=== PATIENT | female | born 1940 | race Caucasian/White ===

== ENCOUNTER 2023-12-07 01:50 | Inpatient (IN) | payer OTHER, SELFPAY ==
[2023-12-06 23:29] VITALS: BP 157/97
[2023-12-06 23:33] VITALS: BP 157/97
--- NOTE | 2023-12-06 23:33 | ED.GENMED ---
History of Present Illness
General
Chief Complaint: Fall
Source: patient
Exam Limitations: none
Time Seen by Provider: 12/06/23 23:29
History of Present Illness
History of Present Illness:
See MDM
Past History
Past History
ED Past Medical History: GERD (Hiatal hernia), HTN, Hypercholesterolemia, Hypothyroidism and Psychiatric (Anxiety, depression)
ED Past Surgical History: Orthopedic
Social History
Tobacco: Former smoker
Alcohol: Occasional
Personal:
Living: with family
Employment: Retired
Family History
Family History: Other (Noncontributory)
Phy Exam
Physical Exam
Physical Exam:
See MDM
Course
Orders/Labs/Results
Orders:
Orders
12/06/23 23:32
Oxycodone/Acetaminophen [Percocet 5/325] 1 tablet PO NOW STA
12/07/23 00:00
CR Hip - RT w/wo Pel 2-3 Vw* Urgent
Reason For Exam: fall, R hip pain
Include a pelvis x-ray?: Yes
12/07/23 00:40
Morphine Sulfate 4 mg IV NOW STA
12/07/23 00:41
Electrocardiogram (*1) Urgent
Reason for Study: PreOp
Consult Orthopedic [ORTHOPEDIC CONSULT] Routine
Consulting Provider: Duarte Barnes
Was physician already notified: Yes
EKG- Treatment ONCE
12/07/23 00:49
Complete Blood Count/With Diff Urgent
Comprehensive Metabolic Panel Urgent
PTT Urgent
Prothrombin Time Urgent
Abnormal Lab Results
12/07/23
00:49
RDW 14.6 H %
(11.5-14.5)
Abs Immat Gran (auto) 0.1 H 10^3/uL
(0-0.05)
Absolute Lymphs (auto) 0.6 L 10^3/uL
(1.2-3.4)
Immature Gran % 0.8 H %
(0-0.5)
Neutrophils % 81.6 H %
(42.2-75.2)
Lymphocytes % 7.4 L %
(20.5-51.1)
PT 14.7 H Sec
(11.4-14.6)
BUN 26 H mg/dl
(7-17)
Creatinine 1.5 H mg/dL
(0.6-1.0)
Glucose 105 H mg/dl
(70-99)
Total Protein 5.8 L g/dl
(6.3-8.2)
12/07/23 00:49
12/07/23 00:49
Vital Signs
Initial and Last Documented VS:
Initial Vital Signs
Temp Pulse Resp BP Pulse Ox
97.9 F 62 18 157/97 92
12/06/23 23:29 12/06/23 23:29 12/06/23 23:29 12/06/23 23:29 12/06/23 23:29
Last Documented Vital Signs
Temp Pulse Resp BP Pulse Ox
97.9 F 62 18 157/97 92
12/06/23 23:29 12/06/23 23:29 12/06/23 23:29 12/06/23 23:33 12/06/23 23:29
MDM/Problems Addressed
Differential Diagnosis Includes:
HPI and MDM Narrative:
83-year-old female presenting with a trip and fall. Patient states he tripped on the rug and fell on her right hip. She denies head trauma. She is on Eliquis.
Will obtain hip and pelvic x-ray
Physical exam
General: Well appearing and non-toxic
HEENT: protecting airway
Neck: appears supple
CV: No evidence of cyanosis
Resp: No accessory muscle use
Abd: Non-distended
Extremities: No deformities. Point tenderness to right hip and right pelvis. Pelvis stable to compression. Distal extremity neurovascular intact. Decreased range of motion secondary to pain
Neuro: alert
Psych: Normal affect
Skin: Intact
Problems Addressed including Acute and Chronic Conditions affecting care:
1. Hip injury
Acuity: acute
Prognosis: stable
Details: Given the fall, will obtain x-ray to rule out fracture
Updates
X-ray consistent with femoral neck fracture. Orthopedics made aware. Will admit
Differential Diagnosis (but not limited to): Hip fracture, hip contusion
Testing considered: CT head but she denies head trauma
Drug therapy (if applicable): OTC meds, please see d/c instruction regarding Rx drugs
Amount and/or Complexity of Data Reviewed
Clinical info obtained from: Patient
External data reviewed: N/A
Labs I independently reviewed (but not limited to): Hgb stable
Radiology: X-ray independently reviewed: Right femoral neck fracture
Pulse Ox: not hypoxic
EKG independently reviewed: Sinus rhythm, left axis, no STEMI
Wardrobe Technician: N/A
Critical Care: N/A
Risk of Complication:
Social Determinants of health: Good social support
Discussed with other providers: Orthopedics, hospitalist
Escalation of Care includes Admit/Obs: Given the femoral neck fracture, will admit
Occasional wrong word or 'sound a like' substitutions may have occurred due to the inherent limitations of voice recognition software. Read the chart carefully and recognize, using context, where substitutions have occurred.
*Critical Care Note
Total Time (30-74mins, 75-104mins- exclusive of procedures): Not Applicable
ED Attending Note
-
Portions of this chart may have been created with voice recognition software.� Occasional wrong word or��sound alike� substitutions may have occurred due to the inherent limitations of voice recognition software.
Discharge Plan
Departure
Patient Disposition: Admit
Date of Disposition: 12/07/23
Time of Disposition: 00:42
Admit to: Med/Surg
Presentation/result/management discussed w/ accepting MD/DO: Hospitalist
Discharge Problem:
Closed hip fracture
Prescriptions:
No Action
levothyroxine 125 MCG tablet
125 mcg PO DAILY AT 0700
fluoxetine 60 MG tablet
60 mg PO DAILY
atorvastatin 20 mg Tablet
20 mg PO QPM
pantoprazole 40 mg Tablet,Delayed Release (Dr/Ec)
40 mg PO DAILY
Eliquis 2.5 mg Tablet
2.5 mg PO BID
Trelegy Ellipta 200-62.5-25 mcg blister with device
1 inh INHALATION DAILY
bupropion HCl 100 mg tablet sustained-release 12 hr
100 mg PO DAILY
furosemide 40 mg Tablet
40 mg PO DAILY Qty: 30 0RF
spironolactone 25 mg Tablet
12.5 mg PO DAILY Qty: 30 0RF
potassium chloride [Klor-Con M20] 20 mEq Tablet,Er Particles/Crystals
20 meq PO DAILY Qty: 30 0RF
metoprolol succinate 25 mg Tablet Extended Release 24 Hr
25 mg PO BID Qty: 0 0RF
Referrals:
Holly Mason MD [Family Provider] -
Interventions
Interventions:
*Risk Screen - Suicide Last Done: 12/06/23 23:29
*General Assessment Last Done: 12/06/23 23:29
*Neglect/Abuse Screening Last Done: 12/06/23 23:29
ED- Fall Risk Assessment Last Done: 12/06/23 23:40
ED-Musculoskeletal Assessment Last Done: 12/06/23 23:40
ED- Neurological Assessment Last Done: 12/06/23 23:40
ED-Skin Assessment Last Done: 12/06/23 23:40
Discharge Date and Time
Print Language: ESTONIAN
[2023-12-06] MEDS: PERCOCET 5/325 1 TABLET PO (23:37)
[2023-12-07] VITALS (7 sets, daily range): BP systolic 137–165; BP diastolic 70–99; BMI 22.0
[2023-12-07] MEDS: MORPHINE SULFATE 4 MG IV (00:49)
[2023-12-07 00:58] LABS: % Basophils 0.7 % (0-2); % Eosinophils 2.1 % (0-6); % Immature Granulocytes 0.8 % (0-0.5); % Lymphocytes 7.4 % (20.5-51.1); % Monocytes 7.4 % (1.7-9.3); % Neutrophils 81.6 % (42.2-75.2); Absolute Basophils 0.1 10^3/uL (0-0.2); Absolute Eosinophils 0.2 10^3/uL (0-0.7); Absolute Immature Granulocytes 0.1 10^3/uL (0-0.05); Absolute Lymphocytes 0.6 10^3/uL (1.2-3.4); Absolute Monocytes 0.6 10^3/uL (0.1-0.6); Absolute Neutrophils 6.1 10^3/uL (1.4-6.5); Hematocrit 37.2 % (37.0-47.0); Hemoglobin 12.7 g/dL (12.0-16.0); Mean Corp Hgb Conc. 34.1 g/dL (33.0-37.0); Mean Corpuscular Volume 87.9 fL (81.0-99.0); Mean Platelet Volume 9.9 fL (7.4-10.4); Nucleated Red Blood Cells % 0 %; Platelet Count 315 10^3/uL (130-400); Red Blood Cell Count 4.23 10^6/uL (4.20-5.40); Red Cell Dist. Width 14.6 % (11.5-14.5); White Blood Cell Count 7.5 10^3/uL (4.8-10.8)
[2023-12-07 01:09] LABS: INR 1.17; PT 14.7 Sec (11.4-14.6)
[2023-12-07 01:11] LABS: ALT (SGPT) 29 U/L (0-35); AST (SGOT) 32 U/L (14-36); Albumin 3.5 g/dl (3.5-5.0); Alkaline Phosphatase 105 U/L (38-126); Blood Urea Nitrogen 26 mg/dl (7-17); Calcium 9.4 mg/dl (8.4-10.2); Carbon Dioxide 28 mmol/L (22-30); Chloride 107 mmol/L (98-107); Estimated Creatinine Clearance 27 ml/min; Glucose 105 mg/dl (70-99); Potassium 4.3 mmol/L (3.5-5.1); Sodium 143 mmol/L (135-145); Total Bilirubin 0.8 mg/dl (0.2-1.3); Total Protein 5.8 g/dl (6.3-8.2); eGFR 34.58
--- NOTE | 2023-12-07 01:25 | HPS.HSE ---
Family Physician
-
Family Physician: Holly Mason
Chief Complaint
-
fall and Rt Hip pain
History of Present Illness
82F from home [facility] PMH significant for hypertension, hypothyroidism and prior PE, HX Lt ANDREAS seen at ER for evaluation of s/p mechanical fall and Rt hip pain.
Medical History
Past Medical History
Past Medical History: Reports Other
Additional Past Medical History:
Hypertension
Hypothyroidism
Chronic HFpEF
Anxiety / Depression
COPD
Pulmonary Hypertension
History of PE
Hiatal Hernia / GERD
Past Surgical History: Reports Other
Additional Past Surgical History:
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
Left Hip ORIF
Lipoma Excision - Back
Left Thumb Surgery
Social History
Tobacco: Former Smoker (Quit in the past year or two.)
Alcohol: None
Drug: None
Living: Assisted Living (Usually at assisted living. Currently staying with family.)
Family History
Family History: Unable to Obtain
Allergies / Home Medications
Allergies reflects when Allergies were last updated in [employer].
Home Medications with original date entered in [employer]
Allergy/Medication List:
Allergies
Allergy/AdvReac Type Severity Reaction Status Date / Time
lisinopril Allergy Tongue Verified 10/03/22 18:34
Swelling
seasonal Allergy itchy Uncoded 10/03/22 18:34
eyes,
sneezing,
sinus
congestion
Home Medications
levothyroxine 125 mcg tablet 125 mcg PO DAILY AT 0700 Thyroid 06/19/19
fluoxetine 60 mg tablet 60 mg PO DAILY Depression 03/29/20
cefdinir 300 mg capsule 300 mg PO BID #13 caps 10/03/22
apixaban 2.5 mg tablet (Eliquis) 2.5 mg PO BID 10/05/22
atorvastatin 20 mg tablet 20 mg PO QPM 10/05/22
bupropion HCl 100 mg tablet 100 mg PO DAILY 10/05/22
furosemide 40 mg tablet 40 mg PO QMWF 10/05/22
metoprolol succinate 25 mg tablet,extended release 24 hr 25 mg PO DAILY 10/05/22
pantoprazole 40 mg tablet,delayed release 40 mg PO DAILY 10/05/22
Review of Systems
-
History Source: Patient
A 12 point ROS was completed and negative except as noted: Yes
Constitutional: Denies Fever or Chills
Respiratory: Denies Trouble Breathing
Cardiac: Denies Chest Pain
Abdomen/GI: Denies Abdominal Pain
Musculoskeletal: Reports See HPI
Neurological: Denies Headache
Physical Exam
Vital Signs
Vital Signs
Temp Pulse Resp BP Pulse Ox
97.9 F 62 18 157/97 92
12/06/23 23:29 12/06/23 23:29 12/06/23 23:29 12/06/23 23:33 12/06/23 23:29
Physical Exam
General: Other (82y F appears confused and somewhat restless.)
HEENT: Moist mucous membranes, PERRLA and Other (JVD to the angle of the mandible.)
Respiratory: Other (Diffuse rales bilaterally - all the way up.)
Cardiac: S1/S2, Regular Rhythm (with ectopy.) and Murmur (II/ LEAH)
GI: Soft, Non Tender, Non Distended and Normal Bowel Sounds
Musculoskeletal: No Clubbing, No Cyanosis and Other (Point tenderness to right hip and right pelvis. Pelvis stable to compression. Distal extremity )
Neuro: Other (Sleeping / confused.)
Laboratory Results
-
12/07/23 00:49
12/07/23 00:49
Laboratory Results
PT 14.7 Sec (11.4-14.6) H 12/07/23 00:49
INR 1.17 12/07/23 00:49
APTT 28.0 Sec (23.4-35.0) 12/07/23 00:49
Total Bilirubin 0.8 mg/dl (0.2-1.3) 12/07/23 00:49
AST 32 U/L (14-36) 12/07/23 00:49
ALT 29 U/L (0-35) 12/07/23 00:49
Alkaline Phosphatase 105 U/L (38-126) 12/07/23 00:49
Data Reviewed
-
Lab Data: Labs Reviewed by me
Old Records: Reviewed
Impression/Plan
-
Vital Signs
Temp Pulse Resp BP Pulse Ox
97.9 F 62 18 157/97 92
12/06/23 23:29 12/06/23 23:29 12/06/23 23:29 12/06/23 23:33 12/06/23 23:29
Labs
12/07/23
00:49
WBC 7.5
Hgb 12.7
INR 1.17
BUN 26 H
Creatinine 1.5 H
eGFR 34.58
EKG:
NORMAL SINUS RHYTHM
POSSIBLE LEFT ATRIAL ENLARGEMENT
LEFT AXIS DEVIATION
LEFT BUNDLE BRANCH BLOCK
ABNORMAL ECG
WHEN COMPARED WITH ECG OF 06-OCT-2022 12:02,
PREMATURE ATRIAL COMPLEXES ARE NO LONGER PRESENT
TTE 06/27
preserved EF, moderate MR / TR and pulmonary hypertension.
ASSESSMENT & PLAN
Acute Rt hip NoF Fx
s/p mechanical fall
RCRI class III risks
- Last dose of Eliquis : 12/06/23 evening
- Held further Eliquis
- Fx set protocol
- Ortho consulted
Chronic HFpEF HX
- cont OPTICAL INSTRUMENT INSPECTOR PO Lasix, Spironolactone and KCL supplement
- Follow I/Os, daily weights, etc.
- Supportive care with supplemental O2
Dementia
- fall precaution
Benign Hypertension
- Stable.
- continue metoprolol.
CKD3
- Stable. Renal function is at / near known baseline.
- daily BMP
Hypothyroidism
- Continue current T4 dose.
HX PE
- Held Eliquis
DVT Px: SCD
Code: Full
IP TLM
[2023-12-07] MEDS: TYLENOL 650 MG PO ×4 (03:56→20:01)
[2023-12-07] MEDS: DILAUDID 0.5 MG IV ×4 (05:36→22:33)
--- NOTE | 2023-12-07 07:19 | W.PN.UPDATE ---
Update Note
Progress Note Update
Patient seen and examined, agree with admitting hospitalist H&P.
83-year-old female with a past medical history of dementia, pulmonary embolism on Eliquis, hypertension, and stage III chronic kidney disease was admitted for acute right hip fracture due to mechanical fall.
Appreciate orthopedic surgery input, plan for ORIF tomorrow, continue holding Eliquis.
Patient has prolonged QTc of 522 ms. She is having nausea and vomiting. Will order promethazine rectal as needed.
Repeat EKG today and tomorrow, avoid Zofran and all QTc prolonging agents.
[2023-12-07] MEDS: TYLENOL PO (08:15)
--- NOTE | 2023-12-07 08:16 | W.PN.UPDATE ---
Update Note
Progress Note Update
Full consult dictated. 83 yo female living independently with family in the area. Fell yesterday and could not ambulate. Xrays reveal right femoral neck fracture. Patient with memory issues and was not a good historian. Spoke with her daughter
who states memory is worse when anxious. Explained treatment options. Have recommended right hip hemiarthroplasty. Risks, complications, benefits, and postop expectations discussed. The procedure itself was discussed. All questions were
answered. Informed consent obtained by telephone from her daughter. Evaluation of the patient reveals that she is not a good historian. AVSS. Right LE shortened and externally rotated. NVI distally. Calf soft. Healed incision about the
anterior aspect of her right thigh from benign mass excision more than 20 years ago according to daughter. Ramiro Scott. Plan for surgery tomorrow for right hip hemiarthroplasty
[2023-12-07] MEDS: PHENERGAN 25 MG RECTAL (08:19)
--- NOTE | 2023-12-07 11:35 | CM ---
Reviewed the chart notes and spoke with the patient and her daughter at the bedside. The patient resides alone in an independent apartment at [facility]. The patient has a rolling walker and shower chair. The patient has been to [facility]
[place] and [facility] in the past. The patient has had [facility] in the past. The patient's pharmacy of choice is [facility]. CM continues to be available to patient/family and is monitoring medical plan for needs at discharge.
Plan: Discharge plan will most likely be SNF/rehab prior to transitioning back to home.
[2023-12-07] MEDS: WELLBUTRIN SR (12 hour sustained release) 100 MG PO (16:41)
[2023-12-07] MEDS: PROTONIX 40 MG PO (16:41)
[2023-12-07] MEDS: TOPROL XL 25 MG PO (16:42)
[2023-12-07] MEDS: LIPITOR 20 MG PO (16:58)
--- NOTE | 2023-12-07 17:31 | PTCARENOTE ---
1700 pt not voiding although purewick in place. BS for 372mls. she then urinated into purewick, not a full empty but will continue to monitor
[2023-12-07] MEDS: COLACE 100 MG PO (20:01)
[2023-12-07] MEDS: SENOKOT 17.2 MG PO (20:01)
[2023-12-07] MEDS: SYMBICORT 160/4.5 MCG INHALER 2 PUFF INH (20:05)
[2023-12-08] VITALS (57 sets, daily range): BP systolic 35–153; BP diastolic 32–96; BMI 22.0
[2023-12-08] MEDS: TYLENOL PO ×6 (00:55→23:56)
[2023-12-08] MEDS: DILAUDID 0.5 MG IV ×2 (04:41→23:50)
[2023-12-08] MEDS: TYLENOL 650 MG PO (04:42)
[2023-12-08] MEDS: SYNTHROID 112 MCG PO (05:20)
[2023-12-08 06:33] LABS: Hematocrit 37.8 % (37.0-47.0); Hemoglobin 13.1 g/dL (12.0-16.0); Mean Corp Hgb Conc. 34.7 g/dL (33.0-37.0); Mean Corpuscular Volume 89.4 fL (81.0-99.0); Mean Platelet Volume 10.4 fL (7.4-10.4); Platelet Count 278 10^3/uL (130-400); Red Blood Cell Count 4.23 10^6/uL (4.20-5.40); Red Cell Dist. Width 14.4 % (11.5-14.5); White Blood Cell Count 11.4 10^3/uL (4.8-10.8)
[2023-12-08 07:04] LABS: ALT (SGPT) 24 U/L (0-35); AST (SGOT) 33 U/L (14-36); Albumin 3.3 g/dl (3.5-5.0); Alkaline Phosphatase 94 U/L (38-126); Blood Urea Nitrogen 22 mg/dl (7-17); Calcium 9.5 mg/dl (8.4-10.2); Carbon Dioxide 25 mmol/L (22-30); Chloride 108 mmol/L (98-107); Direct Bilirubin 0.2 mg/dl (0.0-0.4); Estimated Creatinine Clearance 31 ml/min; Glucose 113 mg/dl (70-99); Magnesium 1.8 mg/dl (1.6-2.3); Sodium 142 mmol/L (135-145); Total Bilirubin 1.2 mg/dl (0.2-1.3); Total Protein 5.6 g/dl (6.3-8.2); eGFR 45.19
[2023-12-08] MEDS: COLACE PO ×2 (08:00→20:42)
[2023-12-08] MEDS: SENOKOT PO ×2 (08:00→20:42)
[2023-12-08] MEDS: WELLBUTRIN SR (12 hour sustained release) PO (08:00)
[2023-12-08] MEDS: PROTONIX PO (08:00)
[2023-12-08] MEDS: TOPROL XL PO (08:00)
--- NOTE | 2023-12-08 08:04 | PTCARENOTE ---
pt transferred to OR via bed by EMS EDUCATOR and Dr Barnes at 0800. Ancef sent to OR.
[2023-12-08] MEDS: SYMBICORT 160/4.5 MCG INHALER INH (08:08)
[2023-12-08] MEDS: SPIRIVA RESPIMAT 2.5 MCG INH (08:08)
--- NOTE | 2023-12-08 08:24 | W.PN.HOSP.TC ---
Addendum entered and electronically signed by Cait Matamoros MD 12/08/23 15:26:
patient had large mass, likely large lipoma in thigh that was removed - 6' x 8'
drain in place with some bleeding - 85cc since PACU
will continue to trend Hg overnight, blood consent was signed for PACU
*Eliquis to start tomorrow evening, ordered by ortho
Original Note:
Today's Communication/Plan
-
see plan
Assessment / Plan
Assessment / Plan
Ms. Anahy Montalvo is a 83 yo woman with hx HTN, Hypothyroidism, prior PE on Eliquis, left ANDREAS presents to the ER s/p fall and right hip pain found to have right hip fracture.
Right Hip Fracture
-admitted to medicine
-s/p OR earlier today (12/07)
-appreciate ortho
-Eliquis resumed this evening per ortho
-PT/OT
Chronic HFpEF HX
-TURN DOWN WORKER lasix, potassium and spironolactone held
-receiving IVF post OR - monitor volume status
- Follow I/Os, daily weights, etc.
- Supportive care with supplemental O2
Dementia
- fall precaution
Benign Hypertension
- Stable.
- continue metoprolol.
CKD3
- Stable. Renal function is at / near known baseline.
- daily BMP
Hypothyroidism
- Continue current T4 dose.
HX PE
-resume Eliquis this evening
Depression
-TURN DOWN WORKER Wellbutrin
-TURN DOWN WORKER Fluoxetine held for prolonged Qtc - will discuss with psychiatry
DVT Px: SCD
Code: Full
IP TLM
Anticipated Discharge: 24 - 48 hours
Subjective/Interval History
-
Date of Service: December 08, 2023
seen post-op
sedated but nods to voice
Objective Data
-
Labs:
Laboratory Results
12/08/23
05:58
WBC 11.4 H
Hgb 13.1
Hct 37.8
Plt Count 278
Sodium 142
Potassium 4.0
Chloride 108 H
Carbon Dioxide 25
BUN 22 H
Creatinine 1.2 H
Glucose 113 H
Calcium 9.5
Total Bilirubin 1.2
AST 33
ALT 24
Alkaline Phosphatase 94
Vital Signs:
Vital Signs
Temp Pulse Resp BP Pulse Ox
98.4 F 68 16 135/89 94
12/08/23 07:20 12/08/23 07:20 12/08/23 07:20 12/08/23 07:20 12/08/23 07:20
I&O
12/07/23 12/08/23 12/09/23
06:59 06:59 06:59
Intake Total 480 / 480
Output Total 200 / 200
Balance 280 / 280
Review of Systems
-
History Source: Patient
All other systems: Reviewed and negative
Physical Exam
-
General: Other (sedated, in no distress )
HEENT: PERRLA
Respiratory: Clear to Auscultation
Cardiac: Regular Rhythm and S1/S2
Musculoskeletal: No Edema and Other (right hip with draining and GARDENIA drain in place )
Skin: Warm and Dry; Negative Rash
Neuro: AO x 3
Psych: Calm
Data Reviewed
-
Diagnostic Radiology: Report Reviewed by me
Labs: Labs Reviewed by me
[2023-12-08] MEDS: NSS 1000 IV (12:17)
--- NOTE | 2023-12-08 12:38 | PTCARENOTE ---
pt received from PACU to room 2108. pt sleeping unless disturbed and returns back to sleep. VS: 97.5-81-16-86/56, pox 97% on 3L NC. assessment as documented. call ndiaye in reach. bed in lowest postition. safe environment maintained. will
observe.
[2023-12-08] MEDS: NSS 500 IV ×3 (13:00→15:07)
--- NOTE | 2023-12-08 13:08 | PTCARENOTE ---
NS 500 ml BOLUS IV started at this time per Dr Matamoros. will observe.
--- NOTE | 2023-12-08 13:56 | PTCARENOTE ---
bolus complete. BP 73/56, HR 74, manual BP 74/48-HR 75. dr Matamoros made aware.
2nd Bolus 500ml NS started at 1345. EKG completed and phlebotomy ag labs. pt alert and talking during EKG, but returns to sleep.
remains NSR w/BBC in 70's on telemetry.
[2023-12-08 14:03] LABS: Hemoglobin 10.7 g/dL (12.0-16.0)
--- NOTE | 2023-12-08 14:35 | W.PN.UPDATE ---
Update Note
Progress Note Update
patient hypotensive post-op
she is confused, awake and alert. + lower back pain. no chest pain
SBP 70's despite 1L IVF
drop in Hg from 13.1 to 10.7, expected post-op
Given patient has a history of heart failure (EF 30% 10/27); caution with fluid administration
-will give additional 500cc now
-transfer to ICU for initiation of Levophed
-hold SURGICAL ONCOLOGIST Metoprolol
-trend Hg
-TTE tomorrow
-Drawer Fitter consulted
-family updated
-Orthopedist updated
Non-MN Troponin Elevation
-no chest pain
-EKG with chronic LBBB, compared to prior no longer has TWI lateral leads
-will trend and obtain TTE tomorrow
Nausea
-given Qtc prolonged will trial IM Tigan. If ineffective will give rectal phenergan - discussed plan with pharmacy
Total Critical Care Time 45 minutes. I was immediately available to the patient and staff. I personally examined, reviewed labs, diagnostic images/reports, interpretations, treatment plans, discussed patient care with other providers and family
or caregivers (if patient is unable to make decisions), entered orders as appropriate and documented the medical record.
[2023-12-08 14:36] LABS: Troponin I 0.712 ng/ml
--- NOTE | 2023-12-08 14:55 | PTCARENOTE ---
2nd Bolus 500 ml NS complete-BP 71/49, HR 77, manual BP 70/40. Dr Matamoros made aware and to see pt.
All personal belongings packed and BUILDING SERVICES COORDINATOR came to room to transport pt to ICU room 4619. verbal report given.
[2023-12-08] MEDS: PROZAC PO (15:03)
[2023-12-08] MEDS: LEVOPHED 250 IV ×3 (15:15→22:22)
--- NOTE | 2023-12-08 15:50 | CON.INTV ---
Consultation
Consultation Request
Date/Time Consultation Requested: 12/08/2023
Date/Time Consultation Performed: 12/08/2023
Requesting Provider: Dr. Matamoros
Performing Provider: Dr. Nico Crews
Reason for Consultation: Postoperative hypotension
Medical History
-
History of Present Illness:
84-year-old woman with past medical history significant for hypertension, hypothyroidism, prior pulmonary embolism, history of left total hip arthroplasty evaluated in the emergency room due to mechanical fall and right hip pain.
Past Medical History
Past Medical History: Other ( See assessment and plan)
Family History
Family History: Reviewed & Not Pertinent
Allergies / Home Medications
Allergies
Allergy/AdvReac Type Severity Reaction Status Date / Time
lisinopril Allergy Tongue Verified 12/06/23 23:36
Swelling
seasonal Allergy itchy Uncoded 12/06/23 23:36
eyes,
sneezing,
sinus
congestion
Home Medications
�Medication �Instructions �Recorded �Confirmed �Last Taken �Type
fluoxetine 60 mg tablet 60 mg PO DAILY Depression 03/29/20 12/07/23 03/28/20 History
apixaban 2.5 mg tablet (Eliquis) 2.5 mg PO BID Blood Clot 10/05/22 12/07/23 Unknown History
Prevention/Tx
atorvastatin 20 mg tablet 20 mg PO QPM High Cholesterol 10/05/22 12/07/23 Unknown History
bupropion HCl 100 mg tablet,12 hr 100 mg PO DAILY Depression 10/05/22 12/07/23 Unknown History
sustained-release
fluticasone fur. 200 mcg-umeclid 1 inh inhalation R DAILY 10/05/22 12/07/23 10/04/22 10:00 History
62.5 mcg-vilant 25 mcg Lung/Breathing Issues
inhalat.powder (Trelegy Ellipta)
pantoprazole 40 mg tablet,delayed 40 mg PO DAILY Gastrointestinal 10/05/22 12/07/23 Unknown History
release Issue
furosemide 20 mg tablet 20 mg PO DAILY Fluid 12/07/23 12/07/23 Unknown History
Retention/Swelling
levothyroxine 112 mcg tablet 112 mcg PO DAILY Thyroid 12/07/23 12/07/23 Unknown History
metoprolol succinate 25 mg 25 mg PO DAILY Blood Pressure 12/07/23 12/07/23 Unknown History
tablet,extended release 24 hr
potassium chloride 20 mEq 20 meq PO DAILY Electrolyte 12/07/23 12/07/23 Unknown History
tablet,extended release Repletion
Review of Systems
-
History Source: Patient
All other systems: Negative unless noted
Vitals / Labs / Diagnostic Testing
Vital Signs
Temp Pulse Resp BP Pulse Ox
97.5 F 77 14 70/40 97
12/08/23 12:29 12/08/23 14:20 12/08/23 14:20 12/08/23 14:20 12/08/23 12:30
Lab Data
12/08/23 05:58
Diagnostic Testing:
Physical Exam
-
HEENT: Normocephalic
Cardiovascular: S1/S2
Respiratory: Clear and Non-Labored Respirations
GI: Soft and Non Distended
Neurology: Awake, Oriented and No Motor Deficits
Skin: Warm
General: Comfortable
Assessment
-
83-year-old woman with multiple comorbidities, mild COPD, prior pulmonary embolism to sedentary lifestyle on low-dose Eliquis, cognitive decline, weight loss, poor mobility, admitted after developing a fall. Subsequently right hemiarthroplasty.
Then sent to the floors. Developed hypotension. Remain lethargic postanesthesia transferred to the critical care unit 12/08/2023 for evaluation and further management
Status post fall right femoral neck fracture: Status post right hip hemiarthroplasty 12/08/2023.
Postoperative hypotension-not responsive to IV fluid
Lethargy-likely postanesthesia effect
Postoperative anemia hemoglobin dropped from 13 to 10.7
Mild troponin leak-0.7-cannot rule out acute coronary syndrome as the patient has new global hypokinesis with low LVEF. Decline cardiac catheterization per cardiology.
EKG: Normal sinus rhythm. Left axis deviation. Chronic left bundle branch block.
Conditions present on :
History of hypertension
Hypothyroidism
Chronic heart failure with reduced ejection fraction based on echocardiogram 10/2022
Declined cardiac catheterization based on note from Dr. Ceja 10/23/2023
Anxiety/depression
YASE-booz-[id number] by Dr. Crews once to establish care 11/21/2023.
Pulmonary hypertension
Prior history of pulmonary embolism: Probably provoked by sedentary lifestyle. She was seen by hematology at her [facility]. She was recommended to continue secondary prophylaxis Eliquis indefinitely.
History of pulmonary embolism
Hiatal hernia/GERD
History of excision of soft tissue tumor of the right thigh
Left hip arthroplasty
Former smoker quit in January 2022
Cognitive decline
-
Echocardiogram 10/07/2022:
Showed normal left ventricular chamber size. Mild concentric left ventricular hypertrophy. Moderately reduced left ventricular systolic function. Ejection fraction 30%. Global hypokinesis. Bilateral atrial enlargement. Mild to moderate MR.
Mild to moderate TR.
Assessment and plan:
Postoperative hypotension. Possibly multifactorial.
Anesthesia effect
Anemia postoperatively. So far no evidence for bleeding.
-
Status post IV fluid resuscitation.
Hold on further aggressive IV fluids given ejection fraction of 30%.
Okay to start low-dose Levophed.
Hopefully as anesthesia wears off we will be able to wean it off.
-
With recently diagnosed systolic heart failure in October 2023-declined cardiac catheterization per [facility] note cannot rule out coronary artery disease as a component as well as heart failure.
Troponin has increased. She denies any chest discomfort.
EKG appears relatively stable compared to prior. Old LBBB.
Trend troponins, if continues to rise may need cardiology evaluation per
Currently chest pain-free
Agree with echocardiogram
May need cardiology evaluate
Medical management recommended
-
She also has history of pulmonary embolism in the past related to her sedentary lifestyle. She has been on secondary prophylaxis Eliquis.
Acute pulmonary embolism also with possibility. She reports compliance with anticoagulation until this admission.
Currently not hypoxemic
Not tachycardic
Minimal oxygen requirements.
If there is no improvement on hemodynamics, may need to consider CT angiogram. Patient is at high risk for contrast-induced nephropathy given chronic kidney disease.
Will start with lower extremity Dopplers first, difficult situation as the patient just underwent hip surgery.
Temporary IVC filter will be recommended if there is DVT.
-
She is lethargic: Arousable. Following commands.
Followed back to sleep quickly
Likely postanesthesia effect head of the bed elevation
N.p.o. for now.
Obtain ABG rule out
-
COPD: Mild. Not bronchospastic.
No indication for corticosteroids.
-
Dr. Crews updated daughter at the bedside 12/08/2023. Daughter state the patient has been declining, poor p.o. intake, mostly sedentary, cognitive decline over the last several months. I have asked her to discuss with the rest of the family to at
least establish a DNR order.
This is a high risk situation.
-
Critical care statement: A total of 38 minutes of critical care time was provided for this patient today. This includes management of unstable vital signs, evaluation of the patient at bedside, reviewing the patient's pertinent medical records
including, radiographs, microbiology, laboratory evaluations and discussion with primary team, critical care nursing, and respiratory therapy.
[2023-12-08] MEDS: LIDOCAINE 4% PATCH 1 PATCH TOPICAL (16:45)
[2023-12-08 17:02] LABS: HCO3 17.7 mmol/L (21-28); O2 Saturation % 98.7 % (94-98); PCO2 32 mmHg (32-35); PO2 84 mmHg (83-108); pH 7.35 (7.35-7.45)
[2023-12-08] MEDS: ANCEF 5 IV (17:03)
[2023-12-08] MEDS: LIPITOR PO (17:05)
--- NOTE | 2023-12-08 18:26 | PTCARENOTE ---
Pt upgraded to ICU level of care for hypotension. Drowsy and lethargic. Does awake to verbal stimuli and able to follow commands but quickly returns to sleep. Oriented to self and time. Sometimes oriented to 'the hospital,' but not able to guess
which it might be. SaO2 96% on 2L. Lungs clear to auscultation. CXR obtained. EKG obtained upon arrival to ICU. Sinuis rhythm/Sinus tach with BBBC. +1 edema at (R) hip. LE doppler study completed at bedside. Levophed gtt initiated with goal of SBP >
90. Levophed gtt titrated to 20 mcg/min to maintain goal. GARDENIA drain with sanguinous drainage. (R) hip Aquacel dressing C/D/I. Pt without void. Beginning to complain of discomfort and need to void, but unable to do so. Bladder scanned for 432ml and
straight cath'd for 500ml. Family discussing code status with ALISSON Barnard.
--- NOTE | 2023-12-08 19:03 | W.PN.UPDATE ---
Addendum entered and electronically signed by ALISSON Esteves 12/08/23 19:10:
no intubation, DNR status updated in orders
Original Note:
Update Note
Progress Note Update
Family requested to update patient's code status to DNR. Reviewed plan of care and answered all questions. Patient's daughter Sixto at bedside with multiple family members all in agreement to change code status to DNR, no CPR, no defibrillation, no
ACLS medications. Will continue current treatment plan and continue vasopressor.
[2023-12-08] MEDS: SYMBICORT 160/4.5 MCG INHALER 2 PUFF INH (19:56)
--- NOTE | 2023-12-08 20:00 | PTCARENOTE ---
agent based modeler, pt oriented to self, confused conversation, able to make needs known although often repetitive in requests/forgetful. ST HR 100s-1teens. IV x 3 WNL- Levo infusing per work list. R hip NV check WNL- GARDENIA drain with mod amt bloody
drainage. bed alarm on, call ndiaye with pt.
[2023-12-08 20:42] LABS: Hemoglobin 10.2 g/dL (12.0-16.0)
[2023-12-08] MEDS: ZOFRAN 4 MG IV (21:42)
[2023-12-09] VITALS (84 sets, daily range): BP systolic 71–154; BP diastolic 48–119; BMI 21.9
[2023-12-09] MEDS: ANCEF 5 IV (00:20)
[2023-12-09] MEDS: NSS IV (00:42)
[2023-12-09] MEDS: LEVOPHED 250 IV ×5 (01:25→19:11)
--- NOTE | 2023-12-09 04:00 | PTCARENOTE ---
pt confused and uncooperative at times t/o night. no UO- bladder scan for 38cc, KFlahertyNP aware. no further changes in assessment. bed alarm on.
[2023-12-09] MEDS: ZOFRAN 4 MG IV ×2 (04:02→11:16)
[2023-12-09] MEDS: DILAUDID 0.5 MG IV ×4 (04:02→23:17)
[2023-12-09 04:18] LABS: Hematocrit 28.9 % (37.0-47.0); Hemoglobin 9.9 g/dL (12.0-16.0); Mean Corp Hgb Conc. 34.3 g/dL (33.0-37.0); Mean Corpuscular Hgb 30.6 pg (27.0-31.0); Mean Corpuscular Volume 89.2 fL (81.0-99.0); Mean Platelet Volume 10.7 fL (7.4-10.4); Platelet Count 307 10^3/uL (130-400); Red Blood Cell Count 3.24 10^6/uL (4.20-5.40); Red Cell Dist. Width 14.9 % (11.5-14.5); White Blood Cell Count 18.5 10^3/uL (4.8-10.8)
[2023-12-09] MEDS: TYLENOL PO ×5 (04:21→23:07)
[2023-12-09 04:44] LABS: Blood Urea Nitrogen 33 mg/dl (7-17); Calcium 8.3 mg/dl (8.4-10.2); Carbon Dioxide 19 mmol/L (22-30); Chloride 105 mmol/L (98-107); Estimated Creatinine Clearance 16 ml/min; Glucose 142 mg/dl (70-99); Potassium 4.4 mmol/L (3.5-5.1); Sodium 139 mmol/L (135-145)
[2023-12-09 04:56] LABS: Troponin I 0.999 ng/ml
[2023-12-09] MEDS: SYNTHROID PO (05:25)
--- NOTE | 2023-12-09 06:48 | W.PN.ORTHO ---
Addendum entered and electronically signed by Duarte Barnes MD 12/09/23 07:29:
Patient seen and examined. Confused. Afebrile. On pressors for BP. Pulm: nonlabored. RLE: thigh soft. NVI distally. Calf soft. Dressing CDI. Drain intact. Hgb stable 9.7. WBC 18.5. Will follow. Mobilize as able.
Original Note:
Today's Communication / Plan
-
POD1 right hip hemiarthroplasty under the direction of Dr. Barnes
--WBAT RLE. Maintain hip precautions. PT/OT when able
--Maintain surgical dressing
--GARDENIA drain with total output of 75cc over 12 hours. Continue to monitor. Will likely leave in place until Friday
--Continue with pain medications as needed. Apply ice to right hip as needed
--Ok to resume Eliquis this evening
--Appreciate care of medical teams
--Will continue to follow
Assessment
.
Distal Motor Intact: Yes
Dressing:
Clean, dry and intact.
Plan
.
Surgery / Date: Right hip mehul 12/08/23 ([facility])
DVT Prophylaxis: Other (Eliquis)
Activity:
Out of bed.
PT/OT
Subjective
.
.:
Patient resting in bed this morning. She is sleeping. She is arousable, but falls back to sleep. Patient was transferred to ICU yesterday for hypotension. She was started on levophed.
Vital Signs and Labs
.
Vital Signs and Labs:
Lab Results
12/09/23 04:03
12/09/23 04:03
Temp Pulse Resp BP Pulse Ox
97.8 F 118 18 106/65 95
12/08/23 20:12 12/09/23 05:15 12/09/23 05:15 12/09/23 05:15 12/09/23 04:45
PT 14.7 Sec (11.4-14.6) H 12/07/23 00:49
INR 1.17 12/07/23 00:49
Physical Exam
-
RLE:
Surgical dressing to right hip. Clean, dry, and intact. There is GARDENIA drain to right thigh to suction with minimal output. General tenderness to palpation of the right hip. Thigh is soft and compressible. Calf soft and nontender. NVI distally
[2023-12-09] MEDS: SPIRIVA RESPIMAT 2.5 MCG 2 PUFF INH (07:41)
[2023-12-09] MEDS: SYMBICORT 160/4.5 MCG INHALER 2 PUFF INH (07:41)
--- NOTE | 2023-12-09 07:45 | W.PN.INTV ---
Today's Communication / Plan
Recommendations
Wean norepinephrine as able
Echocardiogram, renal ultrasound pending
Check hemoglobin in p.m.
Active type and screen if agreeable
Plan to resume Eliquis in the p.m.
Consider cardiology evaluation depending on clinical course. However family and patient requesting nonaggressive management
Family apparently considering transition to focus on comfort, palliative care
Assessment
-
83-year-old woman with multiple comorbidities, mild COPD, prior pulmonary embolism to sedentary lifestyle on low-dose Eliquis, cognitive decline, weight loss, poor mobility, admitted after developing a fall. Subsequently right hemiarthroplasty.
Then sent to the floors. Developed hypotension. Remain lethargic postanesthesia transferred to the critical care unit 12/08/2023 for evaluation and further management
Status post fall right femoral neck fracture: Status post right hip hemiarthroplasty 12/08/2023.
Postoperative hypotension-not responsive to IV fluid
requiring pressors
Postoperative anemia
Mild troponin leak-cannot rule out acute coronary syndrome as the patient has new global hypokinesis with low LVEF. Decline cardiac catheterization per cardiology.
EKG: Normal sinus rhythm. Left axis deviation. Chronic left bundle branch block.
Conditions present on admission:
History of hypertension
Hypothyroidism
Chronic heart failure with reduced ejection fraction based on echocardiogram 10/2022
Declined cardiac catheterization based on note from Dr. Ceja 10/23/2023
Anxiety/depression
PTNC-kckl-vvod by Dr. Crews once to establish care 11/21/2023.
Pulmonary hypertension
Prior history of pulmonary embolism: Probably provoked by sedentary lifestyle. She was seen by hematology at her [facility]. She was recommended to continue secondary prophylaxis Eliquis indefinitely.
History of pulmonary embolism
Hiatal hernia/GERD
History of excision of soft tissue tumor of the right thigh
Left hip arthroplasty
Former smoker quit in January 2022
Cognitive decline
-
Echocardiogram 10/07/2022:
Showed normal left ventricular chamber size. Mild concentric left ventricular hypertrophy. Moderately reduced left ventricular systolic function. Ejection fraction 30%. Global hypokinesis. Bilateral atrial enlargement. Mild to moderate MR.
Mild to moderate TR.
Assessment and plan:
At this time, patient is critically ill, requiring pressors. Tachycardia noted, heart rate in the 120s. Patient having episodic nausea and not feeling right.
Daughter at bedside
Postoperative hypotension. Possibly multifactorial.
Cannot rule out cardiac event, troponin rising
Anemia postoperatively. So far no evidence for bleeding.
Moving forward
Continue with supportive care
Remains on norepinephrine, wean as able
Status post IV fluid resuscitation.
Hold on further aggressive IV fluids given ejection fraction of 30%.
Await echocardiogram
May require intermittent boluses throughout the day, will follow
With recently diagnosed systolic heart failure in October 2023-declined cardiac catheterization per [facility] note cannot rule out coronary artery disease as a component as well as heart failure.
Troponin has increased. She denies any chest discomfort.
EKG appears relatively stable compared to prior. Old LBBB.
Trend troponins, if continues to rise may need cardiology evaluation per
Currently chest pain-free
Agree with echocardiogram
May need cardiology evaluate. Patient sees Dr. Mullins at [facility]
Medical management recommended. Patient not on antiplatelet therapy
Plan to resume Eliquis therapy today
She also has history of pulmonary embolism in the past related to her sedentary lifestyle. She has been on secondary prophylaxis Eliquis.
Acute pulmonary embolism also with possibility. She reports compliance with anticoagulation until this admission.
Currently not hypoxemic
Minimal oxygen requirements. Dopplers negative
When discussing with daughter additional testing, possibly of PE, daughter is requesting no aggressive workup at this time
Family is considering transition to comfort as patient would not want to be bed ridden, group home, rehabilitation
So be an ongoing discussion
She is lethargic: Arousable. Following commands.
Likely postanesthesia effect head of the bed elevation
VBG noted, no evidence of significant CO2 retention, severe acidemia
COPD: Mild. Not bronchospastic.
No indication for corticosteroids.
Dr. Crews updated daughter at the bedside 12/08/2023. Daughter state the patient has been declining, poor p.o. intake, mostly sedentary, cognitive decline over the last several months. I have asked her to discuss with the rest of the family to at
least establish a DNR order.
This is a high risk situation.
I also updated daughter at length at bedside 12/08
Daughters stating that patient would not want any aggressive treatment or workup at this time
Family is considering transition to comfort
Continue with pain control as able
-
Critical care statement: A total of 31 minutes of critical care time was provided for this patient today. This includes management of unstable vital signs, evaluation of the patient at bedside, reviewing the patient's pertinent medical records
including, radiographs, microbiology, laboratory evaluations and discussion with primary team, critical care nursing, and respiratory therapy.
Subjective Dataa
Subjective Data
Date of Service:
Date of Service: December 09, 2023
Subjective:
Patient is feeling nauseous. Remains critically ill, required norepinephrine overnight. Creatinine bumped up, urine output decreased. Patient DNR status noted
Objective Data
Data Reviewed
Vital Signs / I&O / Oxygen:
Vital Signs
Temp Pulse Resp BP Pulse Ox
98.6 F 117 17 92/64 95
12/09/23 07:27 12/09/23 06:48 12/09/23 06:48 12/09/23 06:48 12/09/23 04:45
Intake and Output
12/08/23 12/09/23 12/10/23
06:59 06:59 06:59
Intake Total 480 / 480 3080.0 / 3080.0
Output Total 200 / 200 670 / 670
Balance 280 / 280 2410.0 / 2410.0
SaO2 95
Nasal Cannula flow liters per 4
minute
Physical Exam
General: Comfortable
HEENT: Normocephalic and Anicteric
Cardiovascular: S1-S2, Regular Rhythm, Murmur (n) and Rub (n)
Respiratory: Wheeze (n), Crackles (n), Rhonchi (n) and Non-Labored Respirations
GI: Soft and Non Distended
Neurology: Awake, Alert and No Motor Deficits (Moving extremities)
Skin: Cyanosis (n) and Jaundice (n)
Labs/Micro/Reports
Lab Data
12/09/23 04:03
12/09/23 04:03
Laboratory Results
12/08/23
16:57
pH 7.35
pCO2 32
pO2 84
HCO3 17.7 L
O2 Delivery Level Not Reportable
[2023-12-09] MEDS: WELLBUTRIN SR (12 hour sustained release) 100 MG PO (08:08)
[2023-12-09] MEDS: SENOKOT 17.2 MG PO (08:08)
[2023-12-09] MEDS: LIDOCAINE 4% PATCH 1 PATCH TOPICAL (08:08)
[2023-12-09] MEDS: PROTONIX 40 MG PO (08:09)
[2023-12-09] MEDS: PROZAC 60 MG PO (08:09)
[2023-12-09] MEDS: COLACE 100 MG PO (08:09)
[2023-12-09] MEDS: TYLENOL 650 MG PO (08:09)
--- NOTE | 2023-12-09 08:29 | W.PN.HOSP.TC ---
Today's Communication/Plan
-
TTE
Renal US
Appreciate Consultants
[facility] discussions on-going
Assessment / Plan
Assessment / Plan
Ms. Anahy Montalvo is a 83 yo woman with hx HTN, Hypothyroidism, prior PE on Eliquis, left ANDREAS presents to the ER s/p fall and right hip pain found to have right hip fracture.
Right Hip Fracture
-s/p OR 12/07 with Lipoma removal s/p GARDENIA drain placement
-appreciate ortho
-Eliquis resumed this evening per ortho
-PT/OT - will reorder in ICU; WBAT RLE
Post-Op Hypotension
-patient with systolic blood pressure 70's not responsive to fluids requiring ICU transfer and initiation of Levophed
-likely post anesthesia effect although patient remains on high dosing pressors
-LE US negative for DVT
-appreciate tree and shrub technician consult
-[facility] discussion had with daughter at bedside. She understands with persistent hypotension, renal failure, patient may not survive this. They will discuss comfort care later today. I stated that based on kidney function tomorrow ill be more
telling of prognosis
Acute Kidney Injury on CKD 3
-likely ATN from hypotension
-urine studies
-renal US
-poor urine output overnight, formal renal consult
Non-MS Troponin elevation
-no chest pain, Troponin climbing slowly, will continue to trend
-TTE today
Chronic HFpEF HX
-OCCUPATIONAL ANALYST lasix, potassium and spironolactone held
-TTE as above
- Follow I/Os, daily weights, etc.
- Supportive care with supplemental O2
Dementia
- fall precaution
Benign Hypertension
- hold Metoprolol with low blood pressure
Hypothyroidism
- Continue current T4 dose.
HX PE
-resume Eliquis this evening
Depression
-OCCUPATIONAL ANALYST Wellbutrin
-OCCUPATIONAL ANALYST Fluoxetine held for prolonged Qtc - will discuss with psychiatry
DVT Px: SCD
Code: Full
IP TLM
Anticipated Discharge: > 48 hours
Subjective/Interval History
-
Date of Service: December 09, 2023
patient nauseated this morning
denies pain
seen with daughter in room
Objective Data
-
Labs:
Laboratory Results
12/08/23 12/09/23
20:35 04:03
WBC 18.5 H
Hgb 10.2 L 9.9 L
Hct 28.9 L
Plt Count 307
Sodium 139
Potassium 4.4
Chloride 105
Carbon Dioxide 19 L
BUN 33 H
Creatinine 2.3 H
Glucose 142 H
Calcium 8.3 L
Vital Signs:
Vital Signs
Temp Pulse Resp BP Pulse Ox
98.6 F 81 16 92/64 94
12/09/23 07:27 12/09/23 07:41 12/09/23 07:41 12/09/23 06:48 12/09/23 07:41
I&O
12/08/23 12/09/23 12/10/23
06:59 06:59 06:59
Intake Total 480 / 480 3080.0 / 3162.5 157.5 / 157.5
Output Total 200 / 200 670 / 670
Balance 280 / 280 2410.0 / 2492.5 157.5 / 157.5
Review of Systems
-
History Source: Patient
All other systems: Reviewed and negative
Physical Exam
-
General: No Apparent Distress
HEENT: PERRLA
Respiratory: Non Labored Respirations and Decreased Breath Sounds
Cardiac: Regular Rhythm and S1/S2
GI: Soft and Nontender
Musculoskeletal: No Edema and Other (GARDENIA drain in place )
Neuro: Awake and Alert
Psych: Calm and Apparent Dementia
Data Reviewed
-
Diagnostic Radiology: Report Reviewed by me
Labs: Labs Reviewed by me
--- NOTE | 2023-12-09 08:30 | PTCARENOTE ---
sheet metal duct installer helper, pt oriented to self, confused conversation, able to make needs known although often repetitive in requests/forgetful. ST HR 110s-120s. IV x 2 WNL- Levo infusing per work list. L hand IV leaking, removed. R hip?LE NeuroVascular check
WNL- GARDENIA drain with mod amt bloody drainage. bed alarm on, call ndiaye with pt. GARDENIA dressing changed as okayed by surgeon. Daughter eligio at bedside.
[2023-12-09] MEDS: TIGAN 200 MG IM (08:41)
[2023-12-09] MEDS: ROXICODONE 5 MG PO (10:18)
[2023-12-09] MEDS: LOW STRENGTH ASPIRIN 81 MG PO (10:18)
--- NOTE | 2023-12-09 10:21 | CM ---
CM following re: discharge planning.
Discussed in Rounds, reviewed pt's chart, met with pt and daughter Sixto at bedside [phone].
Per Rounds meeting, pt is POD#1 s/p right hip hemiarthroplasty, GARDENIA drain, PT/OT to evaluate, continue supportive care.
Both pt and her daughter are aware that pt will need SNF level of care at discharge and following SNFs preferred: [facility] or [facility]. A referral to above SNFs made. Awaiting for determination.
D/C plan: Preferred SNF: [facility] or [facility]
CM will follow to assist pt with discharge to a preferred SNF.
--- NOTE | 2023-12-09 11:02 | W.CON.NEPH ---
Consultation
-
Date/Time Consultation Requested: 12/09/23 0902
Date/Time Consultation Performed: 12/09/23 1000
Requesting Provider: Cait Shultz
Performing Provider: Alice Navas
Reason for Consultation: CATA
Medical History
-
Chief Complaint: Fall and right hip pain
History of Present Illness:
82F wiht PMH of HTN on BB, on AC with Eliquis with h/o PE, hypothyroidism on levothyroxine, GERD/HH On PPI, CKD stage 3 baseline cr 1.1-1.5, cardiomyopathy EF 30% on lasix who reportedly mechanical fall at home and later she could not tolerate wt on
right leg. Noted to have right fracture in ER and underwent ORIF on 12/07 also needed large lipoma resection. Post op she became hypotensive requiring pressors. Her cr on admit was 1.5-->1.2-->2.3 with decreased UOP hence nephrology consulted. Pt just
got IV Dilaudid and unable to provide history. Most of the history is obtained by daughter at bedside. No reported fever, on 2lit of O2.
Past Medical History
hypertension, hyperthyroidism, prior PE, anxiety, COPD, pulmonary hypertension, hiatal hernia with reflux.
Past Surgical History: Other (Excision of soft tissue tumor right thigh more than 20 years ago which was benign, left hip hemiarthroplasty, excision of a lipoma from her back, left thumb surgery. )
Social History
Tobacco: Former Smoker (quit 2020)
Alcohol: None
Drug: None
Living: Assisted Living
Family History
no CKD
Allergies / Home Medications
Allergy/AdvReac Type Severity Reaction Status Date / Time
lisinopril Allergy Tongue Verified 12/06/23 23:36
Swelling
seasonal Allergy itchy Uncoded 12/06/23 23:36
eyes,
sneezing,
sinus
congestion
�Medication �Instructions �Recorded �Confirmed �Type
fluoxetine 60 mg tablet 60 mg PO DAILY Depression 03/29/20 12/07/23 History
apixaban 2.5 mg tablet (Eliquis) 2.5 mg PO BID Blood Clot 10/05/22 12/07/23 History
Prevention/Tx
atorvastatin 20 mg tablet 20 mg PO QPM High Cholesterol 10/05/22 12/07/23 History
bupropion HCl 100 mg tablet,12 hr 100 mg PO DAILY Depression 10/05/22 12/07/23 History
sustained-release
fluticasone fur. 200 mcg-umeclid 1 inh inhalation R DAILY 10/05/22 12/07/23 History
62.5 mcg-vilant 25 mcg Lung/Breathing Issues
inhalat.powder (Trelegy Ellipta)
pantoprazole 40 mg tablet,delayed 40 mg PO DAILY Gastrointestinal 10/05/22 12/07/23 History
release Issue
furosemide 20 mg tablet 20 mg PO DAILY Fluid 12/07/23 12/07/23 History
Retention/Swelling
levothyroxine 112 mcg tablet 112 mcg PO DAILY Thyroid 12/07/23 12/07/23 History
metoprolol succinate 25 mg 25 mg PO DAILY Blood Pressure 12/07/23 12/07/23 History
tablet,extended release 24 hr
potassium chloride 20 mEq 20 meq PO DAILY Electrolyte 12/07/23 12/07/23 History
tablet,extended release Repletion
Review of Systems
-
Unable to obtain full review of systems at this time due to: Other (unable to obtain as pt s/p pain med)
Physical Exam
Vital Signs
Vital Signs
Temp Pulse Resp BP Pulse Ox
98.6 F 81 16 92/64 94
12/09/23 07:27 12/09/23 07:41 12/09/23 07:41 12/09/23 06:48 12/09/23 07:41
Lab Results
WBC 18.5 10^3/uL (4.8-10.8) H 12/09/23 04:03
RBC 3.24 10^6/uL (4.20-5.40) L 12/09/23 04:03
Hct 28.9 % (37.0-47.0) L 12/09/23 04:03
Plt Count 307 10^3/uL (130-400) 12/09/23 04:03
Sodium 139 mmol/L (135-145) 12/09/23 04:03
Potassium 4.4 mmol/L (3.5-5.1) 12/09/23 04:03
Chloride 105 mmol/L (98-107) 12/09/23 04:03
Carbon Dioxide 19 mmol/L (22-30) L 12/09/23 04:03
BUN 33 mg/dl (7-17) H 12/09/23 04:03
Creatinine 2.3 mg/dL (0.6-1.0) H 12/09/23 04:03
eGFR 20.70 12/09/23 04:03
Glucose 142 mg/dl (70-99) H 12/09/23 04:03
Calcium 8.3 mg/dl (8.4-10.2) L 12/09/23 04:03
Albumin 3.3 g/dl (3.5-5.0) L 12/08/23 05:58
CXR:
IMPRESSION:
Cardiomegaly without associated pulmonary edema
Large hiatal hernia
Hip Xray:
IMPRESSION:
New right hip hemiarthroplasty in place without radiographic evidence for complication.
Physical Exam
General: Awake, Alert, No Distress and Nontoxic
HEENT: EOMI, Anicteric, Neck Supple and No JVD
Respiratory: Clear, Normal Excursion, Nonlabored Respirations and Other (decreased BS)
Cardiac: S1/S2, Regular Rate/Rhythm and Murmur (systolic in mitral area)
Breast: Deferred by me
Abdomen: Soft, Nontender and Nondistended
Musculoskeletal: No Cyanosis, No Edema and Other (TEDs)
Skin: No Rash
Neuro: Nonfocal/Grossly Intact
Psych: Other (unable to asess)
Data Reviewed
-
Labs: Labs Reviewed by me, Discussed with Nurse and Discussed with Family
Assessment/Plan
-
IMP:
RighM fall-t Hip Fracture-s/p OR 12/07 with Lipoma removal s/p GARDENIA drain placement 12/07
Post-Op Hypotension
Acute Kidney Injury on CKD 3 baseline cr 1.1-1.5
Non-MD Troponin elevation
Chronic HFpEF HX EF 30%
Dementia
Benign Hypertension
Hypothyroidism
HX PE
Depression
Plan:
A/w M fall and s/p ORIF of hip fx
CATA-highly suspect ATN from hypotension
check UA, U lytes, place Garcia
may need to add bicarb IVF after checking labs later today
ok for NS with Levo , titrate as needed for MAP of >65
avoid nephrotoxins
reviewed with daughter at bedside in detail about risk of MARKETING MGR
family wants no aggressive measures, open to discuss option of short term HD
family will have further discussion
vol status seem stable with low EF, repeat echo pending. holding lasix
monitor h/h
d/w nursing
CC time spent 40min
[2023-12-09 11:45] LABS: Osmolality Urine 409 mOsm/kg (300-900)
[2023-12-09 12:00] LABS: Urine Sodium 23 mmol/L (30-90)
--- NOTE | 2023-12-09 12:15 | PTCARENOTE ---
Pt continues to c/o pain but not able to verbalize location. Protecting LL abdomen and indicating bilat flanks. Minimal relief from position changes and pain meds. Held scheduled tylenol due to nausea. Nausea continues with no relief from zofran.
No vomiting since 0900. HR sustained 120s. Weaning levophed down. Executive Business Coach to bedside-see note. Garcia placed as instructed with 35cc out and sent to lab. Roll Builder to bedside to discuss plan of care.
[2023-12-09 12:18] LABS: Hematocrit 26.6 % (37.0-47.0); Hemoglobin 8.9 g/dL (12.0-16.0)
[2023-12-09 14:48] LABS: Urine Albumin Trace (Neg - Trace); Urine Bilirubin Negative (Negative); Urine Character Clear (Clear); Urine Color Yellow; Urine Glucose Negative (Negative); Urine Ketone 1+ (Negative); Urine Leukocyte Negative (Negative); Urine Nitrite Negative (Negative); Urine Occult Blood Negative (Negative); Urine Specific Gravity 1.025 (<1.030); Urine Urobilinogen Negative (Neg - 1+)
--- NOTE | 2023-12-09 14:58 | PN.CDI ---
CDI
- -
CDI:
Physician Documentation Request
Admit Date: 12/07/23 01:50
Dear Doctor Shiloh,
Please review the following and provide your response in the progress notes.
Clinical Indicators:
PN, 12/07
#drop in Hg from 13.1 to 10.7, expected post-op
Based on the above and your clinical assessment please clarify in the appropriate diagnosis, if significant, that supports the above abnormalities and additional evaluation, monitoring and/or treatment rendered:
Acute blood loss anemia
Abnormal lab value, clinically insignificant
Other(please specify)
Use of terms such as suspected, likely, concern for, or probable (associated with a specific diagnosis that is being evaluated, monitored, or treated as if it exists) are acceptable and can be coded in the inpatient setting, when documented at the
time of discharge.
Thank you,
Sara Wyman RN BSN CCDS
CDI Specialist
please contact via tiger text
Please use your independent medical judgment in providing your response.
--- NOTE | 2023-12-09 15:21 | PN.CDI ---
CDI
- -
CDI:
Physician Documentation Request
Admit Date: 12/07/23 01:50
Dear Doctor Shiloh,
Please review the following and provide your response in the progress notes.
Clinical Indicators:
PN, 12/07
#drop in Hg from 13.1 to 10.7, expected post-op
Laboratory Tests
12/07/23 12/08/23 12/08/23
00:49 05:58 13:57
Hgb 12.7 13.1 10.7 L
12/08/23 12/09/23 12/09/23
20:35 04:03 12:03
Hgb 10.2 L 9.9 L 8.9 L
Based on the above and your clinical assessment please clarify in the appropriate diagnosis, if significant, that supports the above abnormalities and additional evaluation, monitoring and/or treatment rendered:
Acute blood loss anemia
Abnormal lab value, clinically insignificant
Other(please specify)
Use of terms such as suspected, likely, concern for, or probable (associated with a specific diagnosis that is being evaluated, monitored, or treated as if it exists) are acceptable and can be coded in the inpatient setting, when documented at the
time of discharge.
Thank you,
Sara Wyman RN BSN CCDS
CDI Specialist
please contact via tiger text
Please use your independent medical judgment in providing your response.
--- NOTE | 2023-12-09 15:24 | PN.CDI ---
CDI
- -
CDI:
Physician Documentation Request
Admit Date: 12/07/23 01:50
Dear Doctor Shiloh,
Please review the following and provide your response in the progress notes.
Current documentation includes a diagnosis of hypotension.
Clinical Indicators:
PN, 12/08
#Post-Op Hypotension
#...-patient with systolic blood pressure 70's
#...not responsive to fluids requiring ICU transfer and initiation of Levophed
#-likely post anesthesia effect although patient remains on high dosing pressors
#Acute Kidney Injury on CKD 3
#...-likely ATN from hypotension
Please clarify which of the following is the most likely etiology of the above symptoms and treatment rendered:
Hypovolemic shock - indicate if due to surgery, trauma or other etiology
Hemorrhagic shock - indicate if due to surgery, trauma or other etiology
Shock, unknown type
Postoperative shock, type unknown
Hypotension - indicate type/etiology, such as idiopathic, neurogenic or orthostatic, post-procedural, postoperative, due to hemodialysis, chronic, drug induced (indicate drug), etc.
Hypotension - unknown type/etiology
Other(please specify)
Use of terms such as suspected, likely, concern for, or probable (associated with a specific diagnosis that is being evaluated, monitored, or treated as if it exists) are acceptable and can be coded in the inpatient setting, when documented at the
time of discharge.
Thank you,
Sara Wyman RN BSN CCDS
CDI Specialist
please contact via tiger text
Please use your independent medical judgment in providing your response.
--- NOTE | 2023-12-09 15:28 | PN.CDI ---
CDI
- -
CDI:
Physician Documentation Request
Admit Date: 12/07/23 01:50
Dear Doctor Shiloh,
Please review the following and provide your response in the progress notes.
Clinical Indicators:
Bone Density, 11/22/2019
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
#...This carries a high increased risk for fracture. Osteopenia in the forearm.
ED, 12/05
#S/P Mechanical Fall
#...tripped on the rug and fell on her right hip.
H+P, 12/05
#Acute Rt hip NoF Fx
#s/p mechanical fall
Please clarify the following regarding the etiology of the right hip fracture:
Multifactorial due to low level trauma and age related osteoporosis
Traumatic fracture only
Other (please specify)
Type Fracture
Age-related With current pathological fx
Drug induced (specify drug) without current pathological fx
Idiopathic
Osteoporosis of disuse
Due to post surgical malabsorption
Post traumatic
Post oophorectomy osteoporosis
Use of terms such as suspected, likely, concern for, or probable (associated with a specific diagnosis that is being evaluated, monitored, or treated as if it exists) are acceptable and can be coded in the inpatient setting, when documented at the
time of discharge.
Thank you,
Sara Wyman RN BSN CCDS
CDI Specialist
please contact via tiger text
Please use your independent medical judgment in providing your response.
[2023-12-09 15:49] LABS: Blood Urea Nitrogen 36 mg/dl (7-17); Calcium 7.3 mg/dl (8.4-10.2); Carbon Dioxide 14 mmol/L (22-30); Chloride 94 mmol/L (98-107); Estimated Creatinine Clearance 15 ml/min; Glucose 456 mg/dl (70-99); Potassium 4.3 mmol/L (3.5-5.1); Sodium 122 mmol/L (135-145); eGFR 18.73
[2023-12-09 16:09] LABS: Glucose - Point of Care 120 mg/dl (70-99)
--- NOTE | 2023-12-09 16:26 | PTCARENOTE ---
resumed care of pt at 1600 , pt daughter at bedside , pt is confused and TORRES MARTINEZ , ST on monitor , BP 97/63 on 6mg of Levophed , no urine output in Garcia cath , R leg with dressing and GARDENIA drain , + 2 edema on RLE , pt had BMP at 1500 , noted very
elevated BG 456 , pt prior BG in 100s , she had an Accu check and result was 120 , new BMP drawn for accuracy at 1600
[2023-12-09 16:39] LABS: Blood Urea Nitrogen 44 mg/dl (7-17); Carbon Dioxide 22 mmol/L (22-30); Chloride 102 mmol/L (98-107); Estimated Creatinine Clearance 13 ml/min; Glucose 117 mg/dl (70-99); Potassium 4.3 mmol/L (3.5-5.1); Sodium 134 mmol/L (135-145); eGFR 15.68
[2023-12-09] MEDS: SODIUM BICARBONATE 1075 MEQ IV (17:45)
[2023-12-09] MEDS: LIPITOR PO (17:46)
[2023-12-09] MEDS: SYMBICORT 160/4.5 MCG INHALER INH (19:58)
--- NOTE | 2023-12-09 20:00 | PTCARENOTE ---
rec`d pt at 1900. pt not AAOx3. only knows self and family. pt can be agitated but reoriented by pt`s daughters, pt drowsy from prn meds given from day shift. levo and bicarb running. rt hand 22. rt FA 22. ST on monitor. MAP of 65 maintained. 4L NC
POX 94%. pt refusing oral medications. gould maintained. 0 output. aquacel on rt hip. minimal drainage. GARDENIA draining bloody drainage. family at bedside. call ndiaye in reach.
[2023-12-09] MEDS: ELIQUIS 2.5 MG PO (20:34)
[2023-12-09] MEDS: COLACE PO (21:08)
[2023-12-09] MEDS: SENOKOT PO (21:08)
[2023-12-09 22:03] LABS: Hemoglobin 7.7 g/dL (12.0-16.0)
[2023-12-10] VITALS (21 sets, daily range): BP systolic 74–104; BP diastolic 43–91; BMI 22.2
--- NOTE | 2023-12-10 | PTCARENOTE ---
pt reassessed. no changes in pt assessment. family at bedside.
[2023-12-10] MEDS: LEVOPHED 250 IV (03:01)
[2023-12-10] MEDS: TYLENOL PO ×2 (03:07→07:37)
--- NOTE | 2023-12-10 03:49 | PTCARENOTE ---
pt reassessed. no changes in pt assessment. family at bedside.
[2023-12-10] MEDS: DILAUDID 0.5 MG IV ×2 (04:12→08:37)
[2023-12-10 04:20] LABS: Hematocrit 22.4 % (37.0-47.0); Hemoglobin 7.8 g/dL (12.0-16.0); Mean Corp Hgb Conc. 34.8 g/dL (33.0-37.0); Mean Corpuscular Hgb 30.2 pg (27.0-31.0); Mean Corpuscular Volume 86.8 fL (81.0-99.0); Mean Platelet Volume 10.6 fL (7.4-10.4); Platelet Count 263 10^3/uL (130-400); Red Blood Cell Count 2.58 10^6/uL (4.20-5.40); Red Cell Dist. Width 14.9 % (11.5-14.5); White Blood Cell Count 12.7 10^3/uL (4.8-10.8)
[2023-12-10] MEDS: SYNTHROID PO (04:44)
[2023-12-10 04:47] LABS: Blood Urea Nitrogen 52 mg/dl (7-17); Calcium 7.9 mg/dl (8.4-10.2); Carbon Dioxide 22 mmol/L (22-30); Chloride 102 mmol/L (98-107); Estimated Creatinine Clearance 11 ml/min; Glucose 107 mg/dl (70-99); Potassium 4.5 mmol/L (3.5-5.1); Sodium 135 mmol/L (135-145); eGFR 12.51
--- NOTE | 2023-12-10 07:27 | W.PN.UPDATE ---
Update Note
Progress Note Update
Patient seen and examined. Daughter at bedside. Remains on pressors. Kidney function worsening. RLE: Dressing CDI. Drain output minimal. Drain removed. Appreciate critical care assistance. Patient DNR. Please call if ortho concerns.
[2023-12-10] MEDS: COLACE PO (07:36)
[2023-12-10] MEDS: ELIQUIS PO (07:36)
[2023-12-10] MEDS: PROTONIX PO (07:37)
[2023-12-10] MEDS: PROZAC PO (07:37)
[2023-12-10] MEDS: SENOKOT PO (07:37)
[2023-12-10] MEDS: LIDOCAINE 4% PATCH TOPICAL (07:37)
[2023-12-10] MEDS: WELLBUTRIN SR (12 hour sustained release) PO (07:38)
[2023-12-10] MEDS: SYMBICORT 160/4.5 MCG INHALER INH (07:55)
[2023-12-10] MEDS: SPIRIVA RESPIMAT 2.5 MCG INH (07:55)
--- NOTE | 2023-12-10 07:58 | W.PN.INTV ---
Today's Communication / Plan
Recommendations
Continue with supportive care
Family is requesting transition to comfort measures
Canceled transfusion request
Continue with pain control
Emotional support provided
Assessment
-
83-year-old woman with multiple comorbidities, mild COPD, prior pulmonary embolism to sedentary lifestyle on low-dose Eliquis, cognitive decline, weight loss, poor mobility, admitted after developing a fall. Subsequently right hemiarthroplasty.
Then sent to the floors. Developed hypotension. Remain lethargic postanesthesia transferred to the critical care unit 12/08/2023 for evaluation and further management
Status post fall right femoral neck fracture: Status post right hip hemiarthroplasty 12/08/2023.
Postoperative hypotension-not responsive to IV fluid
requiring pressors
Postoperative anemia
Mild troponin leak-cannot rule out acute coronary syndrome as the patient has new global hypokinesis with low LVEF. Decline cardiac catheterization per cardiology.
EKG: Normal sinus rhythm. Left axis deviation. Chronic left bundle branch block.
Conditions present on admission:
History of hypertension
Hypothyroidism
Chronic heart failure with reduced ejection fraction based on echocardiogram 10/2022
Declined cardiac catheterization based on note from Dr. Ceja 10/23/2023
Anxiety/depression
[facility]-[id number]-[id number] by Dr. Crews once to establish care 11/21/2023.
Pulmonary hypertension
Prior history of pulmonary embolism: Probably provoked by sedentary lifestyle. She was seen by hematology at her [facility]. She was recommended to continue secondary prophylaxis Eliquis indefinitely.
History of pulmonary embolism
Hiatal hernia/GERD
History of excision of soft tissue tumor of the right thigh
Left hip arthroplasty
Former smoker quit in January 2022
Cognitive decline
-
Echocardiogram 10/07/2022:
Showed normal left ventricular chamber size. Mild concentric left ventricular hypertrophy. Moderately reduced left ventricular systolic function. Ejection fraction 30%. Global hypokinesis. Bilateral atrial enlargement. Mild to moderate MR.
Mild to moderate TR.
Assessment and plan:
At this time, patient is critically ill, requiring pressors. Tachycardia noted, heart rate in the 120s.
Hemoglobin trending down to 7.8. Echocardiogram with EF 20%, PA pressure 45-50
Persistent tachycardia, hypotension noted
Patient also complaining of pain, back pain, left abdominal discomfort
Cannot rule out cardiac event, troponin rising, creatinine rising, urine output minimal
Transfusion was ordered this morning, however family is refusing. They would like to transition to comfort measures
Moving forward
Unfortunately, multisystem organ dysfunction, progressive renal failure noted
Remains on norepinephrine, unable to wean
Echocardiogram with EF 20%, worsened compared to prior studies
Suspect cardiac event although cannot confirm
Patient apparently had follow-up with cardiology in the past, catheterization was recommended but patient did not want to pursue
With recently diagnosed systolic heart failure in October 2023-declined cardiac catheterization per [facility] note cannot rule out coronary artery disease as a component as well as heart failure.
EKG appears relatively stable compared to prior. Old LBBB.
Patient did receive aspirin yesterday x 1
Transition to comfort later today
She also has history of pulmonary embolism in the past related to her sedentary lifestyle. She has been on secondary prophylaxis Eliquis.
Acute pulmonary embolism also with possibility. She reports compliance with anticoagulation until this admission.
Currently not hypoxemic
Minimal oxygen requirements. Dopplers negative
When discussing with daughter additional testing, possibly of PE, daughter is requesting no aggressive workup at this time
Family is requesting transition to comfort measures
She is lethargic: Arousable. Following commands.
Likely postanesthesia effect head of the bed elevation
VBG noted, no evidence of significant CO2 retention, severe acidemia
Pain medication continues
COPD: Mild. Not bronchospastic.
No indication for corticosteroids.
Will transition to comfort measures later today at request of family when family members have arrived
Reviewed at length with critical care nursing, pharmacy, primary service
-
Critical care statement: A total of 31 minutes of critical care time was provided for this patient today. This includes management of unstable vital signs, evaluation of the patient at bedside, reviewing the patient's pertinent medical records
including, radiographs, microbiology, laboratory evaluations and discussion with primary team, critical care nursing, and respiratory therapy.
Subjective Dataa
Subjective Data
Date of Service:
Date of Service: December 10, 2023
Subjective:
Patient remains critically ill. Remains on pressors. Requiring pain medications for back and abdominal discomfort. Hemoglobin noted down to 7.8, transfusion ordered but family is requesting transition to comfort measures.
Objective Data
Data Reviewed
Vital Signs / I&O / Oxygen:
Vital Signs
Temp Pulse Resp BP Pulse Ox
98.2 F 123 13 98/70 95
12/10/23 03:51 12/10/23 04:15 12/10/23 04:15 12/10/23 04:00 12/09/23 20:00
Intake and Output
12/09/23 12/10/23 12/11/23
06:59 06:59 06:59
Intake Total 3080.0 / 3162.5 1517.5 / 1517.5
Output Total 670 / 670 70 / 70
Balance 2410.0 / 2492.5 1447.5 / 1447.5
SaO2 95
Nasal Cannula flow liters per 4
minute
Physical Exam
General: Comfortable (Moaning at times)
HEENT: Normocephalic
Cardiovascular: S1-S2, Regular Rhythm, Murmur (n) and Rub (n)
Respiratory: Wheeze (n), Crackles (n), Rhonchi (n) and Non-Labored Respirations
GI: Soft and Non Distended
Neurology: No Motor Deficits (Moving extremities, lethargic)
Skin: Cyanosis (n) and Jaundice (n)
Labs/Micro/Reports
Lab Data
12/10/23 04:08
12/10/23 04:08
Laboratory Results
12/10/23
05:26
PT Cancelled
INR Cancelled
APTT Cancelled
--- NOTE | 2023-12-10 08:05 | PTCARENOTE ---
Assumed care of pt. Daughter Sixto at bedside. Pt sleeping, arousing to touch but not following commands, confused/slurred speech, and falls back to sleep immediately without stimulation. Tachycardia continues, BP supported by Levophed. 4L NC with
SpO2 91%. Daughter states that she is waiting for her sister and nephew then plan to make pt comfort care. Surgeon to bedside and removed GARDENIA drain without issue. Shredding Machine Operator to bedside and discussed plan with daughter. Verbal order given to hold
blood at this time.
--- NOTE | 2023-12-10 08:16 | W.PN.NEPH.PH ---
Today's Communication / Plan
-
IVF
Assessment/Plan
-
IMP:
RighM fall-t Hip Fracture-s/p OR 12/07 with Lipoma removal s/p GARDENIA drain placement 12/07
Post-Op Hypotension
Acute Kidney Injury on CKD 3 baseline cr 1.1-1.5
Non-ID Troponin elevation
Chronic HFpEF HX EF 30%
Dementia
Benign Hypertension
Hypothyroidism
HX PE
Depression
Plan:
ok to continue light IVF for now
continue levophed to keep MAP>60
I suspect she could get past CATA with +/ short term dialysis, but convalescent time overall would be very long and hard
daughter says family has decided no dialysis under any circumstances
moving toward comfort care today
no additional labs will be needed
critical care time 31 minutes
-
-
Date of Service: December 10, 2023
CC / HPI / ROS
-
Chief Complaint:
CATA
History of Present Illness:
critically ill in ICU on pressors
CATA/Cr worse to 3.5
hypotense on levophed
on supplemental O2
noncommunicative this morning
acidosis better on bicarb IVF
Review of Systems:
noncommunicative
gould in
no fever
Labs
-
Labs:
WBC 12.7 10^3/uL (4.8-10.8) H 12/10/23 04:08
RBC 2.58 10^6/uL (4.20-5.40) L 12/10/23 04:08
Hgb 7.8 g/dL (12.0-16.0) L 12/10/23 04:08
Hct 22.4 % (37.0-47.0) L 12/10/23 04:08
Plt Count 263 10^3/uL (130-400) 12/10/23 04:08
Sodium 135 mmol/L (135-145) 12/10/23 04:08
Potassium 4.5 mmol/L (3.5-5.1) 12/10/23 04:08
Chloride 102 mmol/L (98-107) 12/10/23 04:08
Carbon Dioxide 22 mmol/L (22-30) 12/10/23 04:08
BUN 52 mg/dl (7-17) H 12/10/23 04:08
Creatinine 3.5 mg/dL (0.6-1.0) H 12/10/23 04:08
eGFR 12.51 12/10/23 04:08
Glucose 107 mg/dl (70-99) H 12/10/23 04:08
Calcium 7.9 mg/dl (8.4-10.2) L 12/10/23 04:08
Albumin 3.3 g/dl (3.5-5.0) L 12/08/23 05:58
Physical Exam
-
Vital Signs:
Vital Signs
Temp Pulse Resp BP Pulse Ox
98.2 F 123 13 98/70 95
12/10/23 03:51 12/10/23 04:15 12/10/23 04:15 12/10/23 04:00 12/09/23 20:00
Cardiovascular:: Regular rate and rhythm
Respiratory:: Bilateral: Coarse
Lung Excursion:: Normal
Abdomen:: Nontender and Soft
Bowel Sounds:: Normal
Extremity Edema:: None: Bilateral:
[2023-12-10 08:26] LABS: Cortisol, Random 99.1 ug/dl
--- NOTE | 2023-12-10 08:34 | W.PN.HOSP.TC ---
Addendum entered and electronically signed by Cait Matamoros MD 12/11/23 07:13:
post-operative shock, type unknown
-transitioned to comfort care
Acute Blood Loss Anemia post-op
-transitioned to comfort care
Hip fracture - Multifactorial due to low level trauma and age related osteoporosis
Original Note:
Today's Communication/Plan
-
plan is to transition to comfort measures once other daughter arrives
Assessment / Plan
Assessment / Plan
Ms. Anahy Montalvo is a 83 yo woman with hx HTN, Hypothyroidism, prior PE on Eliquis, left ANDREAS presents to the ER s/p fall and right hip pain found to have right hip fracture.
TTE 12/09/23
CONCLUSIONS
Normal left ventricular size. Dyssynchronous left ventricle. Global
hypokinesis. LV ejection fraction is 20-25% by Newton's method of discs.
Assessment is limited because of tachycardia. Diastolic function
indeterminate.
Mitral valve difficult to assess. No significant regurgitation. Large hiatal
hernia and tachycardia making evaluation difficult.
Trileaflet aortic valve. Aortic valve opens normally. Aortic annular
calcification. No aortic stenosis. No aortic regurgitation is seen.
Tricuspid valve opens normally. Mild eccentric tricuspid regurgitation.
Estimated pulmonary artery pressure of 45-50 mmHg assuming a right atrial
pressure of 3 mmHg.
Compared to prior study 10/07/2022 mitral valve is difficult to assess. PA
pressures increased from prior 35 to 40 mmHg to now 45 to 50 mmHg
Right Hip Fracture
-s/p OR 12/07 with Lipoma removal s/p GARDENIA drain placement
-appreciate ortho
Post-Op Hypotension
Acute Renal Failure on CKD
-required Levophed initiation and transfer to ICU
-likely post anesthesia effect although patient remains on high dosing pressors
-LE US negative for DVT
-appreciate spot washer consult
-appreciate renal consult
-[facility] discussion had with daughter at bedside and they will proceed with comfort measures once other daughter arrives
Non-VA Troponin elevation
-2/2 hypotension post-op
-TTE results above
Chronic HFpEF HX
-KNOT CUTTER lasix, potassium and spironolactone held
- Follow I/Os, daily weights, etc.
- Supportive care with supplemental O2
Dementia
- fall precaution
Benign Hypertension
- hold Metoprolol with low blood pressure
Hypothyroidism
- Continue current T4 dose.
HX PE
-resumed on Eliquis
Depression
-KNOT CUTTER Wellbutrin
-KNOT CUTTER Fluoxetine
DVT Px: SCD
Code: Full
IP TLM
Anticipated Discharge: Within 24 hours
Subjective/Interval History
-
Date of Service: December 10, 2023
seen with family at bedside
intermittent moaning
decision is going to be made for comfort
Objective Data
-
Labs:
Laboratory Results
12/09/23 12/10/23 12/10/23
21:55 04:08 05:26
WBC 12.7 H
Hgb 7.7 L 7.8 L
Hct 22.4 L
Plt Count 263
PT Cancelled
INR Cancelled
APTT Cancelled
Sodium 135
Potassium 4.5
Chloride 102
Carbon Dioxide 22
BUN 52 H
Creatinine 3.5 H
Glucose 107 H
Calcium 7.9 L
Vital Signs:
Vital Signs
Temp Pulse Resp BP Pulse Ox
98.2 F 113 15 81/60 91
12/10/23 03:51 12/10/23 08:15 12/10/23 08:15 12/10/23 08:00 12/10/23 08:22
I&O
12/09/23 12/10/23 12/11/23
06:59 06:59 06:59
Intake Total 3080.0 / 3162.5 1517.5 / 1597.5 160 / 160
Output Total 670 / 670 70 / 70 0 / 0
Balance 2410.0 / 2492.5 1447.5 / 1527.5 160 / 160
Review of Systems
-
History Source: Patient
All other systems: Reviewed and negative
Physical Exam
-
General: Other (intermittent moaning, frail appearing)
HEENT: PERRLA
Respiratory: Decreased Breath Sounds
Cardiac: Regular Rhythm and S1/S2
GI: Soft and Nontender
Musculoskeletal: No Edema
Skin: Warm and Dry; Negative Rash
Neuro: Sedated
Psych: Calm
Data Reviewed
-
Diagnostic Radiology: Report Reviewed by me
Labs: Labs Reviewed by me
--- NOTE | 2023-12-10 10:51 | W.PN.DEATH ---
Pronouncement of
-
Called to see patient to pronounce.
No spontaneous heart tones or respirations noted.
Patient not responsive to verbal stimuli.
Patient is pronounced .
Time of : 10:41
Date of : 12/10/23
Cause of : Acute Renal Failure secondary to post-operative hypotension status post right hip hemiarthroplasty
Family Notified: Yes
--- NOTE | 2023-12-10 11:38 | PTCARENOTE ---
Family to bedside. Relayed desire for comfort care. However, before orders were written, pt's HR decreased from 120s to 80s. Pt was orally suctioned due to gurgling. A few agonal breaths were noted then pt became apneic. Pt passed at 1041.
Matamoros to bedside to pronounce.
--- NOTE | 2023-12-10 13:43 | W.DCSUMMARY ---
Discharge Summary
Discharge Data
Date of Admission: 12/07/23
Date of Discharge: 12/10/23
-
Pending Results: No
Hospital Course
Date of : 12/10/23
Time of : 10:41 AM
Cause of : Acute Renal Failure secondary to post-operative hypotension status post right hip hemiarthroplasty
Ms. Anahy Montalvo was an 83 yo woman with history HTN, Hypothyroidism, dementia, prior PE on Eliquis, left ANDREAS presents to the ER s/p fall and right hip pain found to have right hip fracture. She was admitted to medicine with ortho consulting
and underwent a right hemiarthroplasty on the morning of 12/08/23. Post-op patient had persistent hypotension to 70's not responsive to fluids requiring Levophed initiation and transfer to the ICU. Labs showed non-[place] related Troponin elevation,
dropping hemoglobin and worsening renal function with poor urine output. She remained on high dose pressors. Plan discussed with family who opted for comfort care given patient's frailty and recent decline, they did not want patient to go through
more suffering. She passed peacefully with family at bedside at 10:41 AM on 12/10/23.
Discharge Plan
-
Patient Disposition:
Date/Time
Date/Time: 12/10/23 10:41
Discharge Date and Time
Discharge Date/Time: 12/10/23 10:41
Print Language: MACEDONIAN
--- NOTE | 2023-12-10 15:39 | CHAP ---
Emotional and spiritual support provided to Anahy and family at bedside. Prayer blanket given.
== END 2023-12-10 10:41 | disposition expired | DRG 463 ==
LOC: ICU 01:50
PROVIDERS: Family Medicine; Internal Medicine Critical Care Medicine; Nurse Practitioner Family; ADMITTING PHYSICIAN Internal Medicine; ATTENDING PHYSICIAN Student in an Organized Health Care Education/Training Program; CONSULT PHYSICIAN Internal Medicine; CONSULT PHYSICIAN Internal Medicine Critical Care Medicine; CONSULT PHYSICIAN Orthopaedic Surgery; EMERGENCY PHYSICIAN Student in an Organized Health Care Education/Training Program; FAMILY PHYSICIAN Family Medicine
PROC: 0SRR0J9 Replacement of Right Hip Joint, Femoral Surface with Synthetic Substitute, Cemented, Open Approach (ICD-10-PCS; 2023-12-08)
PROC: 0JBL0ZZ Excision of Right Upper Leg Subcutaneous Tissue and Fascia, Open Approach (ICD-10-PCS; 2023-12-08)
DX: M80.051A Age-related osteoporosis with current pathological fracture, right femur, initial encounter for fracture (principal); N17.0 Acute kidney failure with tubular necrosis; D62 Acute posthemorrhagic anemia; F03.93 Unspecified dementia, unspecified severity, with mood disturbance; F03.94 Unspecified dementia, unspecified severity, with anxiety; I50.42 Chronic combined systolic (congestive) and diastolic (congestive) heart failure; I13.0 Hypertensive heart and chronic kidney disease with heart failure and stage 1 through stage 4 chronic kidney disease, or unspecified chronic kidney disease; E87.20 Acidosis, unspecified; T81.10XA Postprocedural shock unspecified, initial encounter; D17.23 Benign lipomatous neoplasm of skin and subcutaneous tissue of right leg; S70.01XA Contusion of right hip, initial encounter; Z51.5 Encounter for palliative care; R11.0 Nausea; F32.A Depression, unspecified; I95.81 Postprocedural hypotension; R41.0 Disorientation, unspecified; K21.9 Gastro-esophageal reflux disease without esophagitis; J44.9 Chronic obstructive pulmonary disease, unspecified; I27.20 Pulmonary hypertension, unspecified; J30.2 Other seasonal allergic rhinitis; N99.0 Postprocedural (acute) (chronic) kidney failure; R79.89 Other specified abnormal findings of blood chemistry; I44.7 Left bundle-branch block, unspecified; I07.1 Rheumatic tricuspid insufficiency; E03.9 Hypothyroidism, unspecified; E78.00 Pure hypercholesterolemia, unspecified; N18.30 Chronic kidney disease, stage 3 unspecified; W01.0XXA Fall on same level from slipping, tripping and stumbling without subsequent striking against object, initial encounter; Y93.01 Activity, walking, marching and hiking; Y92.009 Unspecified place in unspecified non-institutional (private) residence as the place of occurrence of the external cause; Y83.8 Other surgical procedures as the cause of abnormal reaction of the patient, or of later complication, without mention of misadventure at the time of the procedure; K44.9 Diaphragmatic hernia without obstruction or gangrene; Z66 Do not resuscitate; Z96.642 Presence of left artificial hip joint; Z87.891 Personal history of nicotine dependence; Z79.01 Long term (current) use of anticoagulants; Z79.890 Hormone replacement therapy; Z86.711 Personal history of pulmonary embolism; Z88.8 Allergy status to other drugs, medicaments and biological substances
CPT/HCPCS: 88304; 36600; 71045; 73502; 76770; 80048; 80053; 81003; 82248; 82533; 82805; 82962; 83735; 83935; 84300; 84484; 85014; 85018; 85025; 85027; 85610; 85730; 86850; 86900; 86901; 86920; 87040; 93005; 93306; 93970; 94640; 96374; 99285; 99406; C1713; C1729; C1776; J7030